=== PATIENT | male | born 1965 | race Hispanic/Latino ===

== ENCOUNTER → 2024-06-03 | Outpatient (REF) | payer BC | LOC: CT 15:55 | PROVIDERS: ATTEND Family Medicine Adult Medicine | DX: Z12.2 Encounter for screening for malignant neoplasm of respiratory organs (principal) | CPT/HCPCS: 71250 ==

== ENCOUNTER → 2024-07-10 | Day surgery (SDC) | payer BC ==
[~2024-07-10] MED LIST: ASPIRIN81 MG PO; ATORVASTATIN CA20 MG PO; D3-5000125 MCG; EPHEDRINE SULFATE INJ 50 MG/ML VIAL ONE; GLUCAGON FOR INJ 1 MG VIAL ONE; GLYCOPYRROLATE INJ 0.2 MG/ML VIAL ONE; HYOSCYAMINE SULFATE 0.5 MG/ML INJ ONE; LIDOCAINE HCL 2% LOCAL INJ 5 ML SDV VIAL INJ ONE; PROPOFOL IV EMULSION 50 ML IV ONE; SERTRALINE HCL100 MG PO; SUPER BEET; SYNJARDY 12.5-1 EACH PO; [UNRECOGNIZED DRUG - OTHER] PO
[2024-07-10] MEDS: LACTATED RINGER'S 1,000 ML ONE (06:47)
[2024-07-10 09:45] VITALS: BP 149/71; PULSE 73; RESP 16; O2SAT 98
== END | disposition home or self-care (01) ==
LOC: OR 06:26
PROVIDERS: ATTEND Internal Medicine Gastroenterology
DX: Z12.11 Encounter for screening for malignant neoplasm of colon (principal); K63.5 Polyp of colon; K64.8 Other hemorrhoids; E11.9 Type 2 diabetes mellitus without complications; I10 Essential (primary) hypertension; E78.5 Hyperlipidemia, unspecified; I69.311 Memory deficit following cerebral infarction; F41.9 Anxiety disorder, unspecified; F32.A Depression, unspecified; F17.210 Nicotine dependence, cigarettes, uncomplicated; Z79.82 Long term (current) use of aspirin; Z79.84 Long term (current) use of oral hypoglycemic drugs; Z79.899 Other long term (current) drug therapy
CPT/HCPCS: 36415; 45385; 82948; J1610; J1980; J2003; J2704; J7121